=== PATIENT | female | born 1970 ===

== ENCOUNTER 2018-01-14 16:00 | Emergency (ER) | payer SELFPAY | END 2018-01-14 17:25 | disposition home or self-care (01) | LOC: ERS 16:00 | DX: S90.822A Blister (nonthermal), left foot, initial encounter (principal); E11.9 Type 2 diabetes mellitus without complications; F31.9 Bipolar disorder, unspecified; Z79.899 Other long term (current) drug therapy; X58.XXXA Exposure to other specified factors, initial encounter | CPT/HCPCS: 36416; 99283 ==